=== PATIENT | female | born 1995 | race Caucasian/White ===

== ENCOUNTER 2025-01-16 10:34 | Emergency (ER) | payer OTHER, SELFPAY ==
[2025-01-16 10:51] VITALS: BP 119/95; PULSE 93; RESP 16; TEMP 36.1; O2SAT 99
--- NOTE | 2025-01-16 10:53 | ED.URI ---
HPI - URI/Sore Throat General Chief Complaint: Upper Respiratory Infection Stated Complaint: CHILLS/NAUSEA/FEVER/COUGH/33 WKS Time Seen by Provider: 01/16/25 10:50 Source: patient Mode of arrival: ambulatory Limitations: no limitations History of Present Illness HPI Narrative: Lashaun is a 29-year-old female patient presenting to the clinic today with complaints of fever, chills, nausea, cough, and sinus drainage x3 days. She spoke with the on-call OBGYN last night and they told were that she should come in and be tested for respiratory viruses. Denies sore throat currently. She denies any chest pain or shortness of breath. Is 33 weeks and 1 day gestation. heart tones were 144 in the clinic today. She is 1 para 0. Denies any abdominal pain or vaginal bleeding. Related Data Home Medications ?Medication ?Instructions ?Recorded ?Confirmed ?Last Taken ?Type Vitamin 01/16/25 Unknown History aspirin 81 mg chewable tablet 01/16/25 Unknown History famotidine 20 mg tablet (Pepcid) 20 mg PO BID 01/16/25 01/16/25 Unknown History ondansetron 8 mg disintegrating mg 01/16/25 Unknown History tablet Allergies Allergy/AdvReac Type Severity Reaction Status Date / Time cefprozil (From Cefzil) Allergy Severe Rash Verified 01/16/25 10:54 Review of Systems Review of Systems: Pertinent positives per HPI. Patient denies any fever, chills, rash, headache, visual changes, dizziness, shortness of breath, chest pain, palpitations, nausea, vomiting, diarrhea, constipation, abdominal pain, or any urinary issues. PMFSH Comments At the time of my signature, I reviewed and agree with the nursing past medical, surgical, social, and family history. There is no relevant family history pertinent to the patient complaint. Exam Narrative: General: Well-developed, obese, in no apparent distress Head: Normocephalic, atraumatic Eyes: Pupils equally round and reactive to light bilaterally, EOM intact, sclera and conjunctive clear, no discharge, lids normal Ears: TMs intact and clear, ear canals clear, no drainage, grossly hearing normal. Nose: Nares patent, clear nasal discharge, mild inflammation, no sinus tenderness. Mouth: Oral pharynx without lesions or masses, good dentition, MMM. Neck: Supple, trachea midline, no enlargement of anterior or posterior cervical nodes, no thyroid masses or goiter palpable. Cardio: Regular rate and rhythm, s1 and s2 normal, no murmur appreciated. Resp: Clear to auscultation bilaterally, no rhonchi, rales, wheezing or rubs Course Course Level of Care: Express Care Visit Vital Signs Vital signs: Vital Signs Temperature 36.1 C L 01/16/25 10:51 Pulse Rate 93 01/16/25 10:51 Respiratory Rate 16 01/16/25 10:51 Blood Pressure 119/95 H 01/16/25 10:51 Pulse Oximetry 99 01/16/25 10:51 Temperature 36.1 C L 01/16/25 10:51 Pulse Rate 93 01/16/25 10:51 Respiratory Rate 16 01/16/25 10:51 Blood Pressure 119/95 H 01/16/25 10:51 Pulse Oximetry 99 01/16/25 10:51 MDM MDM Narrative Medical decision making narrative: At the time of visit patient is resting comfortably on the exam table. Patient appears to be nontoxic. Complaints of fever, chills, nausea, cough, and sinus drainage time 3 days. She spoke with the on-call OBGYN last night and they told were that she should come in and be tested for respiratory viruses. Denies sore throat currently. She denies any chest pain or shortness of breath. Is 33 weeks and 1 day gestation. heart tones were 144 in the clinic today. She is 1 para 0. Denies any abdominal pain or vaginal bleeding. On exam patient has bilateral TMs intact and clear, clear nasal drainage, no anterior turbinate inflammation, oral pharynx normal, no cervical lymphadenopathy, heart rates regular rate and rhythm, lung sounds are clear. COVID and influenza testing was ordered. Labs: COVID and influenza testing was negative. Plan: I suspect patient has URI/viral syndrome. List of approved safe medications was given to the patient. heart tones were 144 in the clinic today. Supportive measures were discussed with the patient and they voiced understanding discharge instructions and agrees to treatment plan. Return precautions reviewed Differential Diagnosis Differential Diagnosis: Differential diagnostic considerations for upper respiratory infection include upper respiratory infection, croup, otitis media, sinusitis, viral infection, bronchitis, influenza, pharyngitis, strep, uvulitis. Lab Data Labs: Lab Results 01/16/25 Range/Units 10:44 POC Influenza A Ag Negative (Negative) POC Influenza B Ag Negative (Negative) POC SARS CoV-2 Ag Negative (Negative) Discharge Plan Discharge Clinical Impression: Upper respiratory infection Qualifiers: URI type: unspecified URI Qualified Code(s): J06.9 - Acute upper respiratory infection, unspecified Patient Disposition: Home Condition: Stable Instructions: Antibiotic Form, Cold Symptoms (ED) Additional Instructions: heart tones were 144 COVID and influenza testing was negative in the clinic today. No sign of bacterial infection Lung sounds are clear in the clinic today. Increase fluids and stay well hydrated May take Tylenol as directed on bottle for pain/fever May use Flonase 1 spray in each nare daily May take OTC antihistamines such as Zyrtec or Claritin daily as directed on bottle May apply Vicks vapor rub to chest to open sinuses Sinus rinses for congestion Cepacol spray, cough drops, throat lozenges, warm tea with honey/lemon, gargle salt water to soothe throat BRAT diet for diarrhea Clear liquids x 24 hours then advance as tolerated for nausea/vomiting Go to the ED if you develop a worsening in your condition- high fever not controlled by Tylenol or Motrin, dehydration, weakness, lethargy, shortness of breath, or chest pain. Follow up with your PCP in 3-5 days if symptoms persist. Approved Medications for Patients Cold and Flu Symptoms --Tylenol (regular or extra Strength) Fever (call if over 101?)--Tylenol (regular or extra Strength) Nasal Drainage/Head Congestion--Chlor-Trimeton, Sudafed, Tavist,Tylenol Sinus Cough--Robitussin, Delsym, Mucinex Sore Throat--Chloraseptic, Cepacol lozenges Allergy Symptoms--Benadryl, Zyrtec, Zyrtec D, Claritin, Claritin D Nausea--Emetrol, Vitamin B6 Tablets, Varsha, Varsha Tea, Preggie Pops, B-Eris Suckers Constipation--Milk of Magnesia, Metamucil, Fiberall, Konsyl, Colace (Docusate Sodium) Diarrhea--Imodium, Kaopectate, Follow BRAT diet: bananas, rice, applesauce, tea/toast Heartburn--Maalox, Mylanta, TUMS, Prilosec OTC, Zantac, Tagamet, Prevacid, Pepcid Hemorrhoids--Tucks Pads, Anusol, Preparation H, warm sitz baths Patient Language: Bel[place]ian Prescriptions: No Action ondansetron 8 mg tablet,disintegrating aspirin 81 mg tablet,chewable famotidine [Pepcid] 20 mg tablet 20 mg PO BID Vitamin Follow-up/Referrals: Yocasta,Gloria Del Valle MD [Primary Care Provider, [employer]] Time of Disposition: 11:05 Quality NIHSS Nursing Documentation ED NIHSS nursing documentation: reviewed/agree
[2025-01-16 11:07] LABS: EDCOVIDSCREEN Negative (Negative); EDINFLUASCREEN Negative (Negative); EDINFLUBSCREEN Negative (Negative)
== END 2025-01-16 11:14 | disposition home or self-care (01) ==
PROVIDERS: Emergency Provider Nurse Practitioner Family; PCP Obstetrics & Gynecology
DX: O99.513 Diseases of the respiratory system complicating pregnancy, third trimester (principal); J06.9 Acute upper respiratory infection, unspecified; Z3A.33 33 weeks gestation of pregnancy; Z20.822 Contact with and (suspected) exposure to COVID-19; Z79.82 Long term (current) use of aspirin
CPT/HCPCS: 87426; 87804; 99202; G0463